=== PATIENT | female | born 1950 ===

== ENCOUNTER 2023-08-08 15:55 | Emergency (ER) | payer OTHER, SELFPAY ==
[2023-08-08] VITALS (13 sets, daily range): BP systolic 131–191; BP diastolic 77–115; PULSE 83–95; RESP 20–33; TEMP 36.5; O2SAT 91–96; BMI 119.1
--- NOTE | 2023-08-08 16:14 | DI.RAD.S_ITS ---
PROCEDURE: XR CHEST 1V INDICATIONS: chest pain TECHNIQUE: One view of the chest was acquired. COMPARISON: None. FINDINGS: Surgical changes and devices: None. Lungs and pleura: Low lung volumes. Mild diffuse lung disease. Mediastinum: Heart size is at the upper limit of normal allowing for low lung volumes. Bones and chest wall: No suspicious bony lesions. Overlying soft tissues appear unremarkable. IMPRESSION: Low lung volumes, limiting evaluation. Suspected mild diffuse lung disease could represent edema or atypical infection. Consider future imaging surveillance to assess for resolution. Dictated by: Jon Goldman M.D. on 08/08/2023 at 16:52 Approved by: Jon Goldman M.D. on 08/08/2023 at 16:53
[2023-08-08 16:29] LABS: Add Manual Diff / Slide Review NO; Basophils Absolute Auto 100 /uL (0-100); Basophils Percent Auto 1.1 % (0-2); Eosinophils Absolute Auto 200 /uL (0-450); Eosinophils Percent Auto 2.8 % (2-4); Hematocrit 43.1 % (36-46); Hemoglobin 14.5 g/dL (12.0-16.0); Lymphocytes Absolute Auto 2100 /uL (1100-4500); Lymphocytes Percent Auto 28.2 % (25-40); Mean Corpuscular HGB Conc 33.7 % (30-36); Mean Corpuscular Hemoglobin 28.5 PG (26-34); Mean Corpuscular Volume 84.4 fL (80-100); Monocytes Absolute Auto 500 /uL (0-900); Monocytes Percent Auto 6.6 % (3-14); Neutrophils Absolute Auto 4500 /uL (1500-7000); Neutrophils Percent Auto 61.3 % (50-75); Platelet Count 217 X10^3/uL (150-400); Red Blood Cell Count 5.11 X10^6/uL (4.0-5.2); Red Cell Distribution Width 13.1 % (11.6-14.8); White Blood Cell Count 7.3 X10^3/uL (4.5-11.0)
[2023-08-08 16:34] LABS: Prothrombin Time 11.6 SECONDS (10.1-12.7)
[2023-08-08 16:36] LABS: PTT Partial Thromboplastin Tim 28 SECONDS (26-36)
[2023-08-08 16:56] LABS: Alanine Aminotransferase 17 IU/L (<35); Albumin Globulin Ratio 1.2 (1.0-2.8); Alkaline Phosphatase 72 U/L (38-126); Aspartate Aminotransferase 30 IU/L (14-36); BUN Creatinine Ratio 18.9 (6-22); Bilirubin Total 0.5 mg/dL (0.2-1.3); Blood Urea Nitrogen 10 mg/dL (7-17); Calcium 8.8 mg/dL (8.4-10.2); Carbon Dioxide 28 mmol/L (22-32); Chloride 101 mmol/L (98-107); Creatine Kinase 57 U/L (30-135); Estimated Glomerular Filt Rate > 60 mL/min (>60); Globulin 3.4 g/dL (1.7-4.1); Glucose 204 mg/dL (80-110); HEMOLYSIS 17 (0-50); Lipase 114 U/L (23-300); Magnesium 1.8 mg/dL (1.6-2.3); Potassium 3.7 mmol/L (3.4-5.1); Sodium 136 mmol/L (137-145); Total Protein 7.4 g/dL (6.3-8.2)
--- NOTE | 2023-08-08 16:59 | DI.US.S_ITS ---
PROCEDURE: US PERIPH VENOUS LOW EXTREM BI INDICATIONS: LEG SWELLING TECHNIQUE: Real-time imaging, as well as color and pulse Doppler interrogation, were performed of the deep veins of both legs from the inguinal ligament to the popliteal fossa, with documentation of the visualized calf veins. COMPARISON: None. FINDINGS: Right: The common femoral, femoral, and the visualized calf veins are normally compressible, and free of intraluminal thrombus. Color and pulse Doppler demonstrate normal phasic intravascular flow. There is normal augmentation response to distal compression maneuver. The popliteal vein was not visualized due to body habitus. Left: The common femoral, femoral, popliteal, and the visualized calf veins are normally compressible, and free of intraluminal thrombus. Color and pulse Doppler demonstrate normal phasic intravascular flow. There is normal augmentation response to distal compression maneuver. IMPRESSION: No findings of deep venous thrombosis in either lower extremity. Dictated by: Félix Meehan M.D. on 08/08/2023 at 18:01 Approved by: Félix Meehan M.D. on 08/08/2023 at 18:02
[2023-08-08 17:07] LABS: Troponin I < 0.012 ng/mL (0.01-0.034)
[2023-08-08 17:08] LABS: Lactate (Lactic Acid) 1.6 mmol/L (0.7-2.1)
[2023-08-08 17:10] LABS: D Dimer 641 ng/ml (<500)
[2023-08-08 17:29] LABS: NT-proBNP (BNP-Adult 18+) 156 pg/mL (<125)
[2023-08-08 17:37] LABS: Procalcitonin 0.05 ng/mL (<0.5)
[2023-08-08 17:59] LABS: Troponin I < 0.012 ng/mL (0.01-0.034)
--- NOTE | 2023-08-08 19:12 | ED.CHESTPAIN ---
HPI - Chest Pain General Chief Complaint: Chest Pain Stated Complaint: chest heaviness, difficulty catching breath Time Seen by Provider: 08/08/23 16:57 Source: patient and EMS Mode of arrival: EMS Limitations: no limitations History of Present Illness HPI narrative: Patient is a 72-year-old female who is brought in for evaluation of chest heaviness and difficulty breathing and catching her breath. She states this occurred fairly suddenly after eating something this evening. He was reported that her blood pressure was elevated by EMS and she was tachycardic but also very anxious. Upon my evaluation patient has had her lab work and radiologic studies performed. When I went to see her she stated that she was feeling much better. She states she was here because she is had continued swelling in her right lower extremity. No trauma. She is not on blood thinners. No prior cardiac history. She is no longer feeling short of breath. States she is urinating quite a bit. She is not on diuretics. She denies chest pain Review of Systems Review of Systems ROS Unobtainable: All systems reviewed & are unremarkable except as noted in HPI and below Patient History Social History Smoking Status: Never smoker Smoking Status: Never smoker Substance Use Type: does not use Exam Initial Vital Signs Initial Vital Signs: Vital Signs Pulse Rate 95 H 08/08/23 16:01 Blood Pressure 185/87 H 08/08/23 16:01 Pulse Oximetry 91 08/08/23 16:01 Const General: cooperative, comfortable and No ill appearing HENMT Head: normal to inspection and normocephalic Resp Effort & Inspection: normal respiratory effort Auscultation: clear to auscultation bilaterally Cardio Rate: regular rate Rhythm: regular rhythm GI Inspection: normal to inspection Skin General: no rashes or lesions noted Neuro General: patient alert, patient awake, patient oriented x3 and moves all extremities Extrem Other: Nonpitting edema bilateral lower extremities Psych Appearance: grossly normal Course Orders Ordered: ED Orders 08/08/23 16:59 US perip venous low extrem bi Stat 08/08/23 17:57 EKG-12 Lead Stat 08/08/23 18:30 Blood Culture Stat Discontinued Medications Nitroglycerin (Nitroglycerin 0.4 Mg Sl Tab) 0.4 mg SL [id number] PRN PRN Reason: Chest Pain Vital Signs Vital signs: Vital Signs - 8 hr 08/08/23 17:47 08/08/23 17:47 08/08/23 18:00 Pulse Rate 83 86 Respiratory Rate 24 24 Blood Pressure 188/81 H Pulse Oximetry 94 96 08/08/23 18:30 08/08/23 18:47 08/08/23 18:47 Pulse Rate 86 84 Respiratory Rate 24 21 Blood Pressure 191/115 H Pulse Oximetry 93 94 08/08/23 19:00 08/08/23 19:22 08/08/23 19:22 Pulse Rate 85 87 Respiratory Rate 22 26 H Blood Pressure 188/85 H Pulse Oximetry 94 94 MDM - Chest Pain Lab Data Attestation: I reviewed the patient's lab results. 08/08/23 15:55 08/08/23 15:55 Labs: Lab Results 08/08/23 08/08/23 08/08/23 Range/Units 15:55 15:55 15:55 WBC 7.3 (4.5-11.0) X10^3/uL RBC 5.11 (4.0-5.2) X10^6/uL Hgb 14.5 (12.0-16.0) g/dL Hct 43.1 (36-46) % MCV 84.4 (80-100) fL MCH 28.5 (26-34) PG MCHC 33.7 (30-36) % RDW 13.1 (11.6-14.8) % Plt Count 217 (150-400) X10^3/uL Neut % (Auto) 61.3 (50-75) % Lymph % (Auto) 28.2 (25-40) % [place] % (Auto) 6.6 (3-14) % Eos % (Auto) 2.8 (2-4) % Baso % (Auto) 1.1 (0-2) % Neut # (Auto) 4500 (5972-9854) /uL Lymph # (Auto) 2100 (3152-2267) /uL [place] # (Auto) 500 (0-900) /uL Eos # (Auto) 200 (0-450) /uL Baso # (Auto) 100 (0-100) /uL PT 11.6 (10.1-12.7) SECONDS INR 1.0 (0.9-1.3) APTT 28 (26-36) SECONDS D-Dimer (<500) ng/ml Sodium 136 L (137-145) mmol/L Potassium 3.7 (3.4-5.1) mmol/L Chloride 101 (98-107) mmol/L Carbon Dioxide 28 (22-32) mmol/L BUN 10 (7-17) mg/dL Creatinine 0.53 (0.52-1.04) mg/dL Estimated GFR > 60 (>60) mL/min BUN/Creatinine Ratio 18.9 (6-22) Glucose 204 H (80-110) mg/dL Lactate (0.7-2.1) mmol/L Calcium 8.8 (8.4-10.2) mg/dL Magnesium 1.8 (1.6-2.3) mg/dL Total Bilirubin 0.5 (0.2-1.3) mg/dL AST 30 (14-36) IU/L ALT 17 (<35) IU/L Alkaline Phosphatase 72 (38-126) U/L Total Creatine Kinase 57 (30-135) U/L Troponin I < 0.012 (0.01-0.034) ng/mL NT-Pro-B Natriuret Pep (<125) pg/mL Total Protein 7.4 (6.3-8.2) g/dL Albumin 4.0 (3.5-5.0) g/dL Globulin 3.4 (1.7-4.1) g/dL Albumin/Globulin Ratio 1.2 (1.0-2.8) Lipase 114 (23-300) U/L Procalcitonin (<0.5) ng/mL 08/08/23 08/08/23 08/08/23 Range/Units 16:22 16:22 16:22 WBC (4.5-11.0) X10^3/uL RBC (4.0-5.2) X10^6/uL Hgb (12.0-16.0) g/dL Hct (36-46) % MCV (80-100) fL MCH (26-34) PG MCHC (30-36) % RDW (11.6-14.8) % Plt Count (150-400) X10^3/uL Neut % (Auto) (50-75) % Lymph % (Auto) (25-40) % [place] % (Auto) (3-14) % Eos % (Auto) (2-4) % Baso % (Auto) (0-2) % Neut # (Auto) (2204-6343) /uL Lymph # (Auto) (4907-6621) /uL [place] # (Auto) (0-900) /uL Eos # (Auto) (0-450) /uL Baso # (Auto) (0-100) /uL PT (10.1-12.7) SECONDS INR (0.9-1.3) APTT (26-36) SECONDS D-Dimer 641 H (<500) ng/ml Sodium (137-145) mmol/L Potassium (3.4-5.1) mmol/L Chloride (98-107) mmol/L Carbon Dioxide (22-32) mmol/L BUN (7-17) mg/dL Creatinine (0.52-1.04) mg/dL Estimated GFR (>60) mL/min BUN/Creatinine Ratio (6-22) Glucose (80-110) mg/dL Lactate 1.6 (0.7-2.1) mmol/L Calcium (8.4-10.2) mg/dL Magnesium (1.6-2.3) mg/dL Total Bilirubin (0.2-1.3) mg/dL AST (14-36) IU/L ALT (<35) IU/L Alkaline Phosphatase (38-126) U/L Total Creatine Kinase (30-135) U/L Troponin I (0.01-0.034) ng/mL NT-Pro-B Natriuret Pep 156 H (<125) pg/mL Total Protein (6.3-8.2) g/dL Albumin (3.5-5.0) g/dL Globulin (1.7-4.1) g/dL Albumin/Globulin Ratio (1.0-2.8) Lipase (23-300) U/L Procalcitonin (<0.5) ng/mL 08/08/23 08/08/23 Range/Units 16:22 16:22 WBC (4.5-11.0) X10^3/uL RBC (4.0-5.2) X10^6/uL Hgb (12.0-16.0) g/dL Hct (36-46) % MCV (80-100) fL MCH (26-34) PG MCHC (30-36) % RDW (11.6-14.8) % Plt Count (150-400) X10^3/uL Neut % (Auto) (50-75) % Lymph % (Auto) (25-40) % [place] % (Auto) (3-14) % Eos % (Auto) (2-4) % Baso % (Auto) (0-2) % Neut # (Auto) (0742-0318) /uL Lymph # (Auto) (1048-2413) /uL [place] # (Auto) (0-900) /uL Eos # (Auto) (0-450) /uL Baso # (Auto) (0-100) /uL PT (10.1-12.7) SECONDS INR (0.9-1.3) APTT (26-36) SECONDS D-Dimer (<500) ng/ml Sodium (137-145) mmol/L Potassium (3.4-5.1) mmol/L Chloride (98-107) mmol/L Carbon Dioxide (22-32) mmol/L BUN (7-17) mg/dL Creatinine (0.52-1.04) mg/dL Estimated GFR (>60) mL/min BUN/Creatinine Ratio (6-22) Glucose (80-110) mg/dL Lactate (0.7-2.1) mmol/L Calcium (8.4-10.2) mg/dL Magnesium (1.6-2.3) mg/dL Total Bilirubin (0.2-1.3) mg/dL AST (14-36) IU/L ALT (<35) IU/L Alkaline Phosphatase (38-126) U/L Total Creatine Kinase (30-135) U/L Troponin I < 0.012 (0.01-0.034) ng/mL NT-Pro-B Natriuret Pep (<125) pg/mL Total Protein (6.3-8.2) g/dL Albumin (3.5-5.0) g/dL Globulin (1.7-4.1) g/dL Albumin/Globulin Ratio (1.0-2.8) Lipase (23-300) U/L Procalcitonin 0.05 (<0.5) ng/mL Urine Dip Bedside Urine Glucose Negative Bedside Urine Bilirubin - Negative Bedside Urine Ketone - Negative Urine Specific [place] 1.000 Bedside Urine Occult Blood - Negative Bedside Urine pH 6.5 Bedside Urine Protein - Negative Bedside Urine Urobilinogen - Negative Bedside Urine Nitrite - Negative Bedside Urine Leukocytes - Negative Esterase Imaging Data Chest x-ray: Radiologist's Impression: PROCEDURE:? XR CHEST 1V ? INDICATIONS:? chest pain ? TECHNIQUE:? One view of the chest was acquired.? ? COMPARISON:? None. ? FINDINGS:? ? Surgical changes and devices:? None.? ? Lungs and pleura:? Low lung volumes.? Mild diffuse lung disease. ? Mediastinum:? Heart size is at the upper limit of normal allowing for low lung volumes. ? Bones and chest wall:? No suspicious bony lesions.? Overlying soft tissues appear unremarkable.? ? ? IMPRESSION:? Low lung volumes, limiting evaluation.? Suspected mild diffuse lung disease could represent edema or atypical infection.? Consider future imaging surveillance to assess for resolution. US - DVT: Radiologist's Impression: PROCEDURE:? US PERIPH VENOUS LOW EXTREM BI ? INDICATIONS:? LEG SWELLING ? TECHNIQUE:? Real-time imaging, as well as color and pulse Doppler interrogation, were performed of the deep veins of both legs from the inguinal ligament to the popliteal fossa, with documentation of the visualized calf veins.? ? COMPARISON:? None. ? FINDINGS:? ? Right: The common femoral, femoral, and the visualized calf veins are normally compressible, and free of intraluminal thrombus.? Color and pulse Doppler demonstrate normal phasic intravascular flow.? There is normal augmentation response to distal compression maneuver.? The popliteal vein was not visualized due to body habitus. ? Left: The common femoral, femoral, popliteal, and the visualized calf veins are normally compressible, and free of intraluminal thrombus.? Color and pulse Doppler demonstrate normal phasic intravascular flow.? There is normal augmentation response to distal compression maneuver.? ? ? IMPRESSION:? No findings of deep venous thrombosis in either lower extremity. ECG Data Attestation: I personally reviewed and interpreted this ECG as follows: Interpretation: Sinus rhythm Ventricular rate 94 Normal axis Normal QRS Normal QTC No ST T wave changes MDM Narrative Medical decision making narrative: Patient is feeling much better by the time I evaluated her. Troponins negative. EKG is unremarkable. Chest x-ray is unremarkable. Ultrasound shows no signs of DVT. Her age adjusted D-dimer is negative. No signs of pneumonia. Low suspicion for ACS. I do have a higher suspicion that anxiety is playing a role in her presenting symptoms today. Plan will be to discharge patient home with instructions to follow-up with her primary provider. She expressed understanding and agreement. Discharge Plan Departure Patient Disposition: Home Clinical Impression: Shortness of breath, Hypertension Instructions: High Blood Pressure, DI for Shortness of Breath Activity Restrictions/Additional Instructions: I recommend that you contact your primary doctor to discuss the indications for a stress test. Continue to take all of your medications as directed. Return to the emergency department for new or worsening symptoms. Stand Alone Forms: Patient Portal/API
== END 2023-08-08 19:34 | disposition home or self-care (01) ==
PROVIDERS: Emergency Medicine; Emergency Provider Emergency Medicine
DX: R06.02 Shortness of breath (principal); I10 Essential (primary) hypertension; R07.9 Chest pain, unspecified
CPT/HCPCS: 36415; 71045; 80053; 81003; 82550; 83605; 83690; 83735; 83880; 84145; 84484; 85025; 85379; 85610; 85730; 87040; 93005; 93010; 93970; 99283; 99284